=== PATIENT | male | born 1965 | race Caucasian/White ===

== ENCOUNTER 2018-03-28 17:40 | Emergency (ER) | payer OTHER ==
[2018-03-28] MEDS ORDERED: MECLIZINE HCL 12.5 MG TAB ONE (18:20)
--- NOTE | 2018-03-28 18:57 | RAD REPORT ---
EXAM DESCRIPTION: CT - Head Brain Wo Cont - 03/28/2018 6:30 pm CLINICAL HISTORY: Dizziness COMPARISON: None. TECHNIQUE: Computed axial tomography of the head was obtained. IV contrast was not requested. All CT scans are performed using dose optimization technique as appropriate and may include automated exposure control or mA/KV adjustment according to patient size. FINDINGS: An intracranial bleed is not seen . The ventricles are normal in caliber. No extra-axial fluid collection is noted. A mucus retention cyst is present the left maxillary sinus. Mucoperiosteal thickening involves the ri ght maxillary and sinus. IMPRESSION: No acute intracranial abnormality is seen. If patient's symptoms persist MRI of the bra in would be recommended.
--- NOTE | 2018-03-28 19:08 | EDPHYS ---
Physician Documentation [facility] Name: Jerry Heller Age: 53 yrs Sex: Male : 1965 Arrival Date: 03/28/2018 Time: 17:40 Bed 8 Private MD: ED Physician Anatoly Yang HPI: 03/28 18:30 This 53 yrs old Male presents to ER via Ambulatory with complaints of pm1 Dizziness. 18:30 The patient presents with sense of spinning, vertigo. Onset: The symptoms/episode pm1 began/occurred 1 week(s) ago. Context: just prior to the episode the patient experienced no apparent symptoms, Occurs with change in position. Modifying factors: The symptoms are alleviated by holding head still, the symptoms are aggravated by changing position. Associated signs and symptoms: Pertinent positives: sinus pressure and drainage, Pertinent negatives: abdominal pain, chest pain, head injury, headache, near-syncope, numbness, shortness of breath, tingling. Severity of symptoms: in the emergency department the symptoms have improved Pain is currently a 0 / 10. Patient's baseline: Neuro: alert and fully oriented, Motor: no deficits, Ambulation: walks without assistance, Speech: normal. The patient has not experienced similar symptoms in the past. The patient has not recently seen a physician, out of town. Patient with sensation of the room spinning for about 10 seconds when he changes position and rolls in bed. Onset 1 week ago. Historical: - Allergies: 17:47 Aspirin; aj - Home Meds: 17:47 lamotrigine oral oral [Active]; Abilify oral oral [Active]; Xanax Oral [Active]; aj - PMHx: 17:47 Anxiety; aj - PSHx: 17:47 Hernia repair; aj - Immunization history:: Adult Immunizations up to date. - Social history:: Smoking status: Patient/guardian denies using tobacco. - Ebola Screening: : Patient negative for fever greater than or equal to 101.5 degrees Fahrenheit, and additional compatible Ebola Virus Disease symptoms Patient denies exposure to infectious person Patient denies travel to an Ebola-affected area in the 21 days before illness onset No symptoms or risks identified at this time. ROS: 18:30 Constitutional: Negative for fever, chills, and weight loss, Eyes: Negative for injury, pm1 pain, redness, and discharge, Neck: Negative for injury, pain, and swelling, Cardiovascular: Negative for chest pain, palpitations, and edema, Respiratory: Negative for shortness of breath, cough, wheezing, and pleuritic chest pain, Abdomen/GI: Negative for abdominal pain, nausea, vomiting, diarrhea, and constipation, Back: Negative for injury and pain, : Negative for injury, bleeding, discharge, and swelling, MS/Extremity: Negative for injury and deformity, Skin: Negative for injury, rash, and discoloration. 18:30 ENT: Positive for sinus congestion, Negative for drainage from ear(s), ear pain. 18:30 Neuro: Positive for dizziness, Negative for altered mental status, headache, numbness, tingling, weakness. Exam: 18:30 Constitutional: This is a well developed, well nourished patient who is awake, alert, pm1 and in no acute distress. Head/Face: Normocephalic, atraumatic. Eyes: Pupils equal round and reactive to light, extra-ocular motions intact. Lids and lashes normal. Conjunctiva and sclera are non-icteric and not injected. Cornea within normal limits. Periorbital areas with no swelling, redness, or edema. ENT: Nares patent. No nasal discharge, no septal abnormalities noted. Tympanic membranes are normal and external auditory canals are clear. Oropharynx with no redness, swelling, or masses, exudates, or evidence of obstruction, uvula midline. Mucous membranes moist. Neck: Trachea midline, no thyromegaly or masses palpated, and no cervical lymphadenopathy. Supple, full range of motion without nuchal rigidity, or vertebral point tenderness. No Meningismus. Chest/axilla: Normal chest wall appearance and motion. Nontender with no deformity. No lesions are appreciated. Cardiovascular: Regular rate and rhythm with a normal S1 and S2. No gallops, murmurs, or rubs. Normal PMI, no JVD. No pulse deficits. Respiratory: Lungs have equal breath sounds bilaterally, clear to auscultation and percussion. No rales, rhonchi or wheezes noted. No increased work of breathing, no retractions or nasal flaring. Abdomen/GI: Soft, non-tender, with normal bowel sounds. No distension or tympany. No guarding or rebound. No evidence of tenderness throughout. Back: No spinal tenderness. No costovertebral tenderness. Full range of motion. Skin: Warm, dry with normal turgor. Normal color with no rashes, no lesions, and no evidence of cellulitis. MS/ Extremity: Pulses equal, no cyanosis. Neurovascular intact. Full, normal range of motion. 18:30 Neuro: Orientation: is normal, Mentation: is normal, Cranial nerves: CN II- XII are normal as tested, Cerebellar function: normal finger to nose testing, Motor: moves all fours, strength is normal, strength is 5/5 in all extremities, Sensation: is normal, no obvious gross deficits, Gait: is steady, at a normal pace, without difficulty, nystagmus present with lateral movement of eyes. Positive matta [place] maneuver reproducing room spinning sensation for less than 10 seconds. Vital Signs: 17:47 BP 147 / 99; Pulse 74; Resp 19; Temp 97.1; Pulse Ox 97% on R/A; Weight 122.47 kg; aj Height 5 ft. 8 in. (172.72 cm); 19:20 BP 118 / 80; Pulse 70; Resp 18; Pulse Ox 98% ; Pain 0/10; ea 17:47 Body Mass Index 41.05 (122.47 kg, 172.72 cm) aj MDM: 17:55 Patient medically screened. pm1 19:06 Data reviewed: vital signs. Data interpreted: Pulse oximetry: on room air is 97 %. pm1 Interpretation: normal. Counseling: I had a detailed discussion with the patient and/or guardian regarding: the historical points, exam findings, and any diagnostic results supporting the discharge/admit diagnosis, radiology results, the need for outpatient follow up, to return to the emergency department if symptoms worsen or persist or if there are any questions or concerns that arise at home. 03/28 18:13 Order name: CT Head Brain wo Cont; Complete Time: 19:05 pm1 Administered Medications: 18:15 Drug: Meclizine 50 mg Route: PO; 19:15 Follow up: Response: No adverse reaction ea Disposition: 03/28/18 19:07 Discharged to Home. Impression: Acute sinusitis, Benign paroxysmal vertigo. - Condition is Stable. - Discharge Instructions: Benign Positional Vertigo, Sinusitis, Adult. - Prescriptions for Amoxicillin 500 mg Oral Capsule - take 1 capsule by ORAL route every 8 hours for 10 days; 30 tablet. Meclizine 25 mg Oral Tablet - take 1 tablet by ORAL route every 8 hours As needed; 30 tablet. - Medication Reconciliation Form, Thank You Letter, Antibiotic Education form. - Follow up: Emergency Department; When: As needed; Reason: Worsening of condition. Follow up: Private Physician; When: 2 - 3 days; Reason: Recheck today's complaints, Continuance of care, Re-evaluation by your physician. - Problem is new. - Symptoms have improved. Addendum: 03/30/2018 19:02 Co-signature as Attending Physician, Anatoly Yang MD. r n Signatures: Dispatcher [employer] EDMS Jonathan Schmidt RN RN Amanda Shankar RN Anatoly Worley MD MD rn Marinas, Patrick, ESTELLA [employer] MANAGER pm1 Janice Beasley RN PRITESH martinez Corrections: (The following items were deleted from the chart) 03/28 19:25 19:07 03/28/2018 19:07 Discharged to Home. Impression: Acute sinusitis; Benign ea paroxysmal vertigo. Condition is Stable. Forms are Medication Reconciliation Form, Thank You Letter, Antibiotic Education, Prescription Opioid Use. Follow up: Emergency Department; When: As needed; Reason: Worsening of condition. Follow up: Private Physician; When: 2 - 3 days; Reason: Recheck today's complaints, Continuance of care, Re-evaluation by your physician. Problem is new. Symptoms have improved. pm1
--- NOTE | 2018-03-28 19:08 | ER ---
Nurse's Notes [facility] Name: Jerry Heller Age: 53 yrs Sex: Male : 1965 Arrival Date: 03/28/2018 Time: 17:40 Bed 8 Private MD: Diagnosis: Acute sinusitis;Benign paroxysmal vertigo Presentation: 03/28 17:45 Presenting complaint: Patient states: Reports dizziness with movement intermittently aj since last week. No pain or weakness reported. Transition of care: patient was not received from another setting of care. Onset of symptoms was March 23, 2018. Risk Assessment: Do you want to hurt yourself or someone else? Patient reports no desire to harm self or others. Initial Sepsis Screen: Does the patient meet any 2 criteria? No. Patient's initial sepsis screen is negative. Does the patient have a suspected source of infection? No. Patient's initial sepsis screen is negative. Care prior to arrival: None. 17:45 Method Of Arrival: Ambulatory aj 17:45 Acuity: CASSI 4 aj Triage Assessment: 17:47 General: Appears in no apparent distress. comfortable, Behavior is calm, cooperative, aj appropriate for age. Pain: Denies pain. Neuro: Level of Consciousness is awake, alert, obeys commands, Oriented to person, place, time, situation, Appropriate for age. Neuro: Reports dizziness. Respiratory: Airway is patent Respiratory effort is even, unlabored, Respiratory pattern is regular, symmetrical. Derm: Skin is intact, is healthy with good turgor, Skin is pink, warm \T\ dry. normal. Historical: - Allergies: 17:47 Aspirin; aj - Home Meds: 17:47 lamotrigine oral oral [Active]; Abilify oral oral [Active]; Xanax Oral [Active]; aj - PMHx: 17:47 Anxiety; aj - PSHx: 17:47 Hernia repair; aj - Immunization history:: Adult Immunizations up to date. - Social history:: Smoking status: Patient/guardian denies using tobacco. - Ebola Screening: : Patient negative for fever greater than or equal to 101.5 degrees Fahrenheit, and additional compatible Ebola Virus Disease symptoms Patient denies exposure to infectious person Patient denies travel to an Ebola-affected area in the 21 days before illness onset No symptoms or risks identified at this time. Screenin:17 Abuse screen: Denies threats or abuse. Denies injuries from another. Nutritional sg screening: No deficits noted. Tuberculosis screening: No symptoms or risk factors identified. Never had TB. Fall Risk None identified. Assessment: 18:16 General: Appears in no apparent distress. comfortable, well groomed, well developed, sg well nourished, Behavior is calm, cooperative, appropriate for age. Neuro: Level of Consciousness is awake, alert, obeys commands, Oriented to person, place, time, situation, Chief Mate are equal bilaterally Moves all extremities. Full function Gait is steady, Speech is normal, Facial symmetry appears normal. Cardiovascular: Patient's skin is warm and dry. Chest pain is denied. Respiratory: Respiratory effort is even, unlabored, Respiratory pattern is regular, symmetrical. GI: No signs and/or symptoms were reported involving the gastrointestinal system. : No signs and/or symptoms were reported regarding the genitourinary system. EENT: Throat is clear. Derm: Skin is pink, warm \T\ dry. Musculoskeletal: No signs and/or symptoms reported regarding the musculoskeletal system. 18:19 Neuro: Reports dizziness, Denies weakness blurred vision difficulty swallowing, sg numbness headache photophobia diplopia. 19:20 General: Appears in no apparent distress. comfortable, Behavior is calm, cooperative, ea appropriate for age. General: Pt reports he is feeling better. Discharge instruction given to patient, verbalized the understanding of instruction. . Neuro: Level of Consciousness is awake, alert, obeys commands, Oriented to person, place, time, situation. Cardiovascular: Patient's skin is warm and dry. Respiratory: Airway is patent Respiratory effort is even, unlabored, Respiratory pattern is regular, symmetrical. Derm: Skin is pink, warm \T\ dry. Vital Signs: 17:47 BP 147 / 99; Pulse 74; Resp 19; Temp 97.1; Pulse Ox 97% on R/A; Weight 122.47 kg; aj Height 5 ft. 8 in. (172.72 cm); 19:20 BP 118 / 80; Pulse 70; Resp 18; Pulse Ox 98% ; Pain 0/10; ea 17:47 Body Mass Index 41.05 (122.47 kg, 172.72 cm) aj ED Course: 17:40 Patient arrived in ED. mr 17:46 Triage completed. aj 17:47 Arm band placed on right wrist. Patient placed in an exam room. aj 17:54 Khari Pascual, ESTELLA is PHCP. pm1 17:54 Anatoly Yang MD is Attending Physician. pm1 18:15 Jonathan Schmidt, RN is Primary Nurse. sg 18:[address] Scan. sg 18:19 No provider procedures requiring assistance completed. sg 18:29 CT Head Brain wo Cont In Process Unspecified. EDMS 19:22 Patient did not have IV access during this emergency room visit. ea Administered Medications: 18:15 Drug: Meclizine 50 mg Route: PO; sg 19:15 Follow up: Response: No adverse reaction ea Outcome: 19:07 Discharge ordered by . pm1 19:21 Discharged to home ambulatory. ea 19:21 Condition: improved 19:21 Discharge instructions given to patient, Instructed on discharge instructions, follow up and referral plans. medication usage. 19:25 Patient left the ED. ea Signatures: Dispatcher [employer] EDSD Jonathan Schmidt, PRITESH RN Amanda Shankar RN RN aj Rivera, Mary mr Khari Pascual, ESTELLA MANAGER PRESENTATION pm1 Janice Beasley RN RN ea
== END 2018-03-28 19:25 | disposition home or self-care (01) ==
LOC: ER 17:40
DX: H81.10 Benign paroxysmal vertigo, unspecified ear (principal); J01.90 Acute sinusitis, unspecified; F41.9 Anxiety disorder, unspecified; Z88.6 Allergy status to analgesic agent
CPT/HCPCS: 70450; 99283